=== PATIENT | male | born 1980 | race Caucasian/White ===

== ENCOUNTER 2017-11-01 08:56 | Emergency (ER) | payer MEDICAID ==
[~2017-11-01] VITALS: Ht 182.9 cm; Wt 99.8 kg
[2017-11-01 09:01] VITALS: Ht 182.9 cm; Wt 99.8 kg
[2017-11-01 09:44] VITALS: BP 143/102
== END 2017-11-01 09:44 | disposition home or self-care (01) ==
LOC: ED 08:56
DX: H60.502 Unspecified acute noninfective otitis externa, left ear (principal); G43.909 Migraine, unspecified, not intractable, without status migrainosus; M72.2 Plantar fascial fibromatosis; I10 Essential (primary) hypertension; Z88.5 Allergy status to narcotic agent
CPT/HCPCS: J1885

== ENCOUNTER 2017-11-02 21:45 | Emergency (ER) | payer MEDICAID ==
[~2017-11-02] VITALS: Ht 182.9 cm; Wt 102.0 kg
[2017-11-02 22:04] VITALS: Ht 182.9 cm; Wt 102.0 kg
[2017-11-02 23:35] VITALS: BP 146/93
== END 2017-11-02 23:35 | disposition home or self-care (01) ==
LOC: ED 21:45
DX: S06.0X9A Concussion with loss of consciousness of unspecified duration, initial encounter (principal); S16.1XXA Strain of muscle, fascia and tendon at neck level, initial encounter; F32.9 Major depressive disorder, single episode, unspecified; F41.9 Anxiety disorder, unspecified; Y93.89 Activity, other specified; V89.2XXA Person injured in unspecified motor-vehicle accident, traffic, initial encounter; Y92.89 Other specified places as the place of occurrence of the external cause; Y99.8 Other external cause status
CPT/HCPCS: J1885; Q0092

== ENCOUNTER 2018-02-16 16:00 | Emergency (ER) | payer MEDICAID ==
[~2018-02-16] VITALS: Ht 182.9 cm; Wt 102.1 kg
[2018-02-16 16:07] VITALS: Ht 182.9 cm; Wt 102.1 kg
[2018-02-16 17:47] LABS: BASOPHIL % 0.3 % (0-2); PLATELET COUNT 394 x10^3mcL (130-400)
[2018-02-16 17:49] LABS: RED CELL DISTRIBUTION WIDTH 14.7 % (11.5-14.5)
[2018-02-16 17:52] LABS: CARBON DIOXIDE 30.6 mmol/L (21-32); CHLORIDE SERUM 104 mmol/L (98-107); CREATININE SERUM 0.8 mg/dL (0.7-1.3); GFR1 > 60 mL/min; GLUCOSE SERUM 90 mg/dL (74-106); POTASSIUM SERUM 4.1 mmol/L (3.5-5.1); SODIUM SERUM 139 mmol/L (136-145)
[2018-02-16 18:04] LABS: ALBUMIN 3.8 g/dL (3.4-5.0); ALKALINE PHOSPHATASE 77 U/L (46-116); ALT/SGPT 29 U/L (16-63); AST/SGOT 16 U/L (15-37); BILIRUBIN TOTAL 0.6 mg/dL (0.20-1.00); CHOLESTEROL 157 mg/dL (<200); HDL CHOLESTEROL 45 mg/dL (40-60); PHOSPHOROUS 3.1 mg/dL (2.5-4.9); TOTAL PROTEIN, SERUM 7.6 g/dL (6.4-8.2); URIC ACID 5.2 mg/dL (3.5-7.2)
[2018-02-16 18:34] VITALS: BP 138/93
== END 2018-02-16 18:34 | disposition home or self-care (01) ==
LOC: ED 16:00
PROVIDERS: Emergency Medicine
DX: R53.1 Weakness (principal); M54.9 Dorsalgia, unspecified; R20.2 Paresthesia of skin; R11.0 Nausea; R42 Dizziness and giddiness; M54.2 Cervicalgia; I10 Essential (primary) hypertension; G43.909 Migraine, unspecified, not intractable, without status migrainosus; Z90.49 Acquired absence of other specified parts of digestive tract; Z88.5 Allergy status to narcotic agent
CPT/HCPCS: 36415